=== PATIENT | female | born 1990 ===

== ENCOUNTER 2020-08-02 07:08 | Emergency (ER) | payer SELFPAY ==
[2020-08-02 09:17] VITALS: BP 113/65
--- NOTE | 2020-08-02 09:21 | Emergency Department Report ---
Chief Complaint: Urogenital-Female Stated Complaint: STD Time Seen by Provider: 08/02/20 09:00 - HPI History of Present Illness: Patient is a 30-year-old female presents emergency room with complaints of routine STD testing. She states that she has had a small amount of white vaginal discharge and some vaginal itching. She states that she went to [facility] 2 weeks ago and was treated for STDs. She states that she also went to [facility] and was treated for STDs. She states that she has still been sexually active without protection. She denies any fever, nausea, vomiting, diarrhea, dysuria, hematuria, vaginal bleeding, abdominal pain, back pain. She denies any other past medical history. No allergies to medications. She states that she has a Mirena IUD as control. She does not have a ORDER DESK CALLER that she is seeing Vitals are stable On exam: Non toxic appearing, no acute distress atraumatic, normocephalic normal appearance of the eyes, PERRL, EOMI, no periorbital edema or ecchymosis moist mucus membranes regular heart rate and rhythm, no gallops, no rubs, no murmurs breath sounds are clear bilaterally, no w/r/r, no respiratory distress, no accessory muscle use, no stridor Abdomen is soft, nondistended, no tenderness to palpation, no guarding, no rebound, no rigidity, normal bowel sounds A&O x4, no focal neuro deficit skin is warm, dry, intact Patient is presenting for STD testing She has already been to 2 other emergency departments and received testing and treatment She denies any fever, nausea, vomiting, diarrhea, dysuria, hematuria, vaginal bleeding, abdominal pain, back pain She is not having clinical signs of PID or UTI given that she recently has had antibiotics twice now, could have mild yeast infection, advised to use monistat 7 day over the counter and follow up given multiple resources Patient will be referred to the health department and clinics Discussed strict return precautions Medical screening examination performed and there is no threat to life or limb at this time MSE screening note: Focused history and physical exam performed. Due to findings the following was ordered: ED Medical Decision Making - Lab Data Vital Signs 08/02/20 08/02/20 07:30 09:48 Temperature 98.2 F Pulse Rate 107 H 84 Respiratory 20 Rate Blood Pressure 113/65 O2 Sat by Pulse 100 Oximetry ED Disposition for MSE Clinical Impression: Concern about STD in female without diagnosis Disposition: MED SCREENING EXAM-LEFT Is pt being admited?: No Does the pt Need Aspirin: No Condition: Stable Instructions: Safe Sex Additional Instructions: Please follow-up with the health department, ORDER DESK CALLER, or clinic for full STD panel. Please have any partner tested and treated as well. Avoid sexual intercourse. May use Monistat 7-day [id number]. Return to emergency room for any new or worsening symptoms. Referrals: [facility] [Outside] - 2-3 Days [facility] [Provider Group] - 2-3 Days [facility] [Outside] - 2-3 Days Time of Disposition: 09:20 Print Language: CANADIAN
== END 2020-08-02 09:48 | disposition left against medical advice (07) ==
LOC: ED 07:08
DX: Z20.2 Contact with and (suspected) exposure to infections with a predominantly sexual mode of transmission (principal); Z53.21 Procedure and treatment not carried out due to patient leaving prior to being seen by health care provider